=== PATIENT | female | born 1970 ===

== ENCOUNTER 2024-01-08 06:23 | Day surgery (SDC) | payer OTHER ==
[2024-01-02 11:43] LABS: HEMOGLOBIN 12.5 g/dL (12.0-15.00); MEAN CORPUSCULAR HEMOGLOBIN 31.7 pg (27.00-32.0); MEAN CORPUSCULAR HGB CONC 34.8 g/dl (32.0-36.0); PLATELET COUNT 214 K/uL (150-450); RED BLOOD COUNT 3.95 M/uL (4.00-6.00); RED CELL DISTRIBUTION WIDTH 13.6 % (11.5-14.5)
[2024-01-02 11:46] LABS: URINE APPEARANCE Clear; URINE BILIRRUBIN Negative (NEGATIVE); URINE BLOOD Negative; URINE COLOR Yellow; URINE GLUCOSE Negative (NEGATIVE); URINE KETONE Negative (NEGATIVE); URINE LEUKOCYTE Negative; URINE NITRATE Negative; URINE PROTEIN Negative (NEGATIVE); URINE UROBILINOGEN 0.2 E.U./dl
[2024-01-02 11:50] LABS: URINE BACTERIA 45.3 uL (0.0-1933); URINE EPITHELIAL CELLS 4.8 uL (0.0-38.8); URINE RBC 2.2 uL (0.0-20.8)
[2024-01-02 11:57] LABS: URINE WBC 0.1 uL (0.0-23.2)
[2024-01-02 12:10] LABS: INR 1.04; PARTIAL THROMBOPLASTIN TIME 29.3 SECONDS (22.0-34.0); PROTHROMBIN TIME 10.9 SECONDS (9.0-11.5)
[2024-01-02 12:15] LABS: ALBUMIN 3.7 gm/dL (3.4-5.0); BILIRUBIN TOTAL 0.34 mg/dL (0.3-1.2); CALCIUM 9.3 mg/dL (8.5-10.1); CREATININE SERUM 0.87 mg/dL (0.55-1.02); GFR 68.11; GLOBULINA 3.4 G/DL (2.4-3.5); POTASSIUM 4.34 mEq/L (3.5-5.1); TOTAL PROTEIN 7.1 gm/dL (6.4-8.2)
[~2024-01-08 06:23] MED LIST: FLECAINIDE ACE100 MG; NEXIUM 24HR20 M1; ORAPRED ODT10 MG; RINVOQ ER15 MG; RISEDRONATE SOD35 M1; ZYRTEC10 M3
[2024-01-08] MEDS ORDERED: CLINDAMYCIN PHOSPHATE 150 MG/ML (900mg) IV ONE (08:45)
[2024-01-08] MEDS ORDERED: KETOROLAC TROMETHAMINE 30 MG VIAL IV ONE (08:45)
[2024-01-08] MEDS ORDERED: KETOROLAC TROMETHAMINE 30 MG VIAL IJ ONE (08:45)
[2024-01-08] MEDS ORDERED: HYDROCORTISONE SODIUM SUCC/PF 100 MG VIAL IV ONE (10:15)
[2024-01-08] MEDS ORDERED: SUGAMMADEX SODIUM 200 MG/2 ML VIAL IV ONE (10:15)
== END 2024-01-08 13:55 | disposition home or self-care (01) ==
LOC: CIR.AMB 06:23
PROVIDERS: ATTEND Orthopaedic Surgery
DX: M75.122 Complete rotator cuff tear or rupture of left shoulder, not specified as traumatic (principal); M75.22 Bicipital tendinitis, left shoulder; M24.112 Other articular cartilage disorders, left shoulder; Z88.1 Allergy status to other antibiotic agents; I10 Essential (primary) hypertension; K21.9 Gastro-esophageal reflux disease without esophagitis; R06.81 Apnea, not elsewhere classified